=== PATIENT | male | born 1995 | race Two or more races ===

== ENCOUNTER 2018-02-20 16:31 | Emergency (ER) | payer SELFPAY ==
[~2018-02-20] VITALS: Ht 182.9 cm; Wt 65.8 kg
[2018-02-20] MEDS ORDERED: LISD60CA PO (16:54)
[2018-02-20] MEDS ORDERED: [UNRECOGNIZED DRUG - REMARK] (16:54)
--- NOTE | 2018-02-20 17:20 | NUR ---
MSE COMPLETED, PT D/C'D HOME, ACI/RX X2 GIVEN. PT AMBULATED W/O DIFF/TOOK ALL BELONGIONGS.
[2018-02-20 17:22] VITALS: BP 122/55
== END 2018-02-20 17:25 | disposition home or self-care (01) ==
LOC: ER 16:37
DX: M25.531 Pain in right wrist (principal); J20.8 Acute bronchitis due to other specified organisms; B97.89 Other viral agents as the cause of diseases classified elsewhere
CPT/HCPCS: A4663